=== PATIENT | female | born 1975 | race Caucasian/White ===

== ENCOUNTER 2023-04-06 00:41 | Emergency (ER) | payer OTHER ==
[~2023-04-06] VITALS: Ht 162.6 cm; Wt 68.0 kg
--- NOTE | 2023-04-06 01:00 | NUR ---
BIBFAM FOR EPIGASTRIC PAIN AND NAUSEA X 1 DAY STATES "I THINK I HAVE FOOD POISONING FROM [place]" 07/13 PAIN. PT A/OX4. TOLERATING R/A WELL WITH NO RESP DISTRESS. COONNECTED PT TO POX AND MONITOR. SAFETY MEASURES IN PLACE
[2023-04-06] MEDS ORDERED: PANTOPRAZOLE 40 MG VIAL ONE (01:12)
[2023-04-06] MEDS ORDERED: ONDANSETRON HCL/PF 4 MG/2 ML VIAL ONE (01:12)
[2023-04-06] MEDS ORDERED: MORPHINE SULFATE INJ 2 MG/ML DISP.SYRIN ONE (01:12)
--- NOTE | 2023-04-06 01:25 | NUR ---
20G IV STARTED ON L AC. BLOOD COLLECTED SENT TO LAB
--- NOTE | 2023-04-06 01:26 | NUR ---
MEDICATIONS ADMINISTERED ORDERED
[2023-04-06] MEDS ORDERED: IV NS 0.9% 1,000 ML BAG IV ONE (01:30)
[2023-04-06] MEDS ORDERED: ONDANSETRON HCL/PF 4 MG/2 ML VIAL IVP ONE (01:30)
[2023-04-06] MEDS ORDERED: PANTOPRAZOLE 40 MG VIAL IV ONE (01:30)
[2023-04-06] MEDS ORDERED: MORPHINE SULFATE INJ 2 MG/ML DISP.SYRIN IV ONE (01:30)
--- NOTE | 2023-04-06 01:33 | NUR ---
PT SIGNED WAIVER FORM; TECHNOLOGIST DEVELOPMENT AWARE
[2023-04-06 01:34] LABS: BASOPHILS % (AUTO) 0.4 % (0.0-2.0); EOSINOPHILS % (AUTO) 0.7 % (0.0-6.0); HEMATOCRIT 38 % (33-45); HEMOGLOBIN 12.8 g/dL (11.5-14.8); LYMPHOCYTES % (AUTO) 12.7 % (20.0-44.0); MEAN CORPUSCULAR HGB CONC 33 g/dl (31.0-36.0); MEAN CORPUSCULAR VOLUME 90 fL (82-100); MONOCYTES # (AUTO) 0.6 K/uL (0.1-1.30); MONOCYTES % (AUTO) 7.4 % (2.0-12.0); NEUTROPHILS # (AUTO) 5.9 K/uL (1.8-8.9); NEUTROPHILS % (AUTO) 78.8 % (43.0-81.0); PLATELET COUNT (AUTO) 271 K/uL (150-450); RED BLOOD CELL COUNT(AUTO) 4.24 MIL/uL (4.0-5.2); WHITE BLOOD COUNT (AUTO) 7.5 K/uL (4.3-11.0)
[2023-04-06 01:46] LABS: ALBUMIN 3.6 g/dL (3.4-5.0); BILIRUBIN,DIRECT 0.1 mg/dL (0.0-0.2); BILIRUBIN,TOTAL 0.6 mg/dL (0.2-1.0); CALCIUM, SERUM 8.5 mg/dL (8.5-10.1); CREATININE 0.7 mg/dL (0.6-1.3); POTASSIUM 3.6 mmol/L (3.5-5.1); TOTAL PROTEIN, SERUM 6.8 g/dL (6.4-8.2)
[2023-04-06] MEDS ORDERED: ONDA4TAB5 PO (04:35)
[2023-04-06] MEDS ORDERED: HYDROCODONE/APAP 5/325MG TABLET ONE (04:43)
--- NOTE | 2023-04-06 04:49 | NUR ---
PT REQUESTING PAIN MEDICATIONS PRIOR TO DISCHARGE. DR. JUAREZ AWARE WITH ORDER TO GIVE NORCO 5-325. MEDICATION ADMINISTERED TO PT
[2023-04-06 04:51] VITALS: BP 131/65
--- NOTE | 2023-04-06 04:51 | NUR ---
Patient discharged to home in stable condition. Written and verbal after care instructions given. Patient verbalizes understanding of instruction.IV removed. Catheter intact and site benign. Pressure and 4x4 applied to site. No bleeding noted.
== END 2023-04-06 05:01 | disposition home or self-care (01) ==
LOC: ER 00:54
DX: A08.4 Viral intestinal infection, unspecified (principal)
CPT/HCPCS: 99285; 74176; 96374; 71045; 96375; 96361; 93005; 85025; 80048; 83690; 80076; 36415; J2405; C9113; J2270